=== PATIENT | male | born 1965 | race Caucasian/White ===

== ENCOUNTER 2020-11-22 12:17 | Emergency (ER) | payer SELFPAY ==
[~2020-11-22] VITALS: Ht 177.8 cm; Wt 93.5 kg
--- NOTE | 2020-11-22 12:29 | NUR ---
PATIENT TWISTED RIGHT KNEE LAST NIGHT WHILE RUNNING IN YARD, STEPPED ON A BRICK WRONG. PAIN GOT INCREASINGLY WORSE TODAY.
[2020-11-22] MEDS ORDERED: KETOROLAC 30 MG/1 ML IM ONE (13:00)
--- NOTE | 2020-11-22 13:14 | NUR ---
PT TO [facility]IA [facility] AT THIS TIME.
[2020-11-22] MEDS ORDERED: KETOROLAC 30 MG/1 ML ONE (13:15)
--- NOTE | 2020-11-22 13:26 | NUR ---
TASK RN: PT MEDICATED FOR 9/10 RIGHT KNEE PAIN PER [facility]AR.
[2020-11-22 13:30] VITALS: BP 149/94
--- NOTE | 2020-11-22 14:42 | NUR ---
PT D/C WITH D/C SUMMARY AND SCRIPTS. ALL QUESTIONS ANSWERED. PT D/C WITH SHORTS, KNEE IMMOBILIZER, AND CRUTCHES. PT VERBALIZES AND DEMONSTRATES CORRECT USE OF CRUTCHES PRIOR TO D/C. PT DENIES ANY OTHER NEEDS PERTAINING TO THIS VISIT AND D/C IN CARE OF FAMILY FOR SAFE RIDE HOME.
== END 2020-11-22 14:45 | disposition home or self-care (01) ==
LOC: ED 14:35
DX: S83.411A Sprain of medial collateral ligament of right knee, initial encounter (principal); X50.1XXA Overexertion from prolonged static or awkward postures, initial encounter; Y93.89 Activity, other specified; Y92.098 Other place in other non-institutional residence as the place of occurrence of the external cause; Y99.8 Other external cause status
CPT/HCPCS: 29505; 73564; 96372; 99283; J1885